=== PATIENT | female | born 1980 | race Caucasian/White ===

== ENCOUNTER 2016-09-30 22:49 | Emergency (ER) | payer OTHER ==
[2016-09-30] MEDS ORDERED: Azithromycin TAB* 250 MG PO ONE (23:19)
--- NOTE | 2016-09-30 23:33 | ED ---
Influenza-Like Illness - HPI Summary HPI Summary: Patient presents with 10 days of worsening sinus pressure and pain. She has a runny nose and cough that began to lessen yesterday, but today her facial pain became quite unbearable. She denies fever, chills, N/V/D. She is 20 weeks . Her cough is not productive, and when she blows her nose there is minimal mucus. She denies AARON, but again she has intense bilateral sinus pressure and pain. - History of Current Complaint Chief Complaint: EDFluSymptoms Time Seen by Provider: 09/30/16 23:04 Hx Obtained From: Patient, Family/Manager Ethics Onset/Duration: Gradual Onset Severity: Severe Associated Signs & Symptoms: Cough, Nasal Congestion - Allergy/Home Medications Allergies/Adverse Reactions: Allergies Allergy/AdvReac Type Severity Reaction Status Date / Time Penicillins Allergy Intermediate Rash Verified 06/18/16 12:53 PMH/Surg Hx/FS Hx/Imm Hx Previously Healthy: Yes - Surgical History Surgery Procedure, Year, and Place: tonsillectomy. NASAL FRACTURE REPAIR Infectious Disease History: No Infectious Disease History: Denies: Hx Clostridium Difficile, Hx Hepatitis, Hx Human Immunodeficiency Virus (HIV), Hx of Known/Suspected MRSA, Hx Shingles, Hx Tuberculosis, History Other Infectious Disease, Traveled Outside the [place] in Last 30 Days - Family History Known Family History: Positive: Hypertension - Social History Occupation: Employed Full-time Lives: With Family Alcohol Use: None Substance Use Type: Reports: None Smoking Status (MU): Never Smoked Tobacco Review of Systems Negative: Fever, Chills Positive: Nasal Discharge - with facial pain and pressure Positive: Cough. Negative: Shortness Of Breath Negative: Vomiting, Diarrhea, Nausea Negative: Edema Negative: Bruising Negative: Headache All Other Systems Reviewed And Are Negative: Yes Physical Exam Triage Information Reviewed: Yes Vital Signs On Initial Exam: Initial Vitals Temp Pulse Resp BP Pulse Ox 97.7 F 85 16 118/72 100 09/30/16 23:00 09/30/16 23:00 09/30/16 23:00 09/30/16 23:00 09/30/16 23:00 Vital Signs Reviewed: Yes Appearance: Positive: Well-Appearing, Well-Nourished, Pain Distress - patient appears uncomfortable Skin: Positive: Warm, Skin Color Reflects Adequate Perfusion, Dry, Soft Head/Face: Positive: Normal Head/Face Inspection, Other - tender to palpation over bilateral maxillary sinus L>R, non-tender over frontal Eyes: Positive: EOMI, ROBS[place], Conjunctiva Clear ENT: Positive: Hearing grossly normal, Pharynx normal, Nasal congestion, TMs normal. Negative: Tonsillar swelling, Tonsillar exudate Neck: Positive: Supple, Nontender, No Lymphadenopathy Respiratory/Lung Sounds: Positive: Clear to Auscultation, Breath Sounds Present Cardiovascular: Positive: RRR Neurological: Positive: Sensory/Motor Intact, Alert, Oriented to Person Place, Time Psychiatric: Positive: Affect/Mood Appropriate AVPU Assessment: Alert - [place] Coma Scale Coma Scale Total: 15 Diagnostics - Vital Signs Vital Signs Temp Pulse Resp BP Pulse Ox 09/30/16 23:17 87 98 09/30/16 23:16 98/62 09/30/16 23:00 97.7 F 85 16 118/72 100 - Laboratory Lab Statement: Any lab studies that have been ordered have been reviewed, and results considered in the medical decision making process. Flu Symptom Course/Dx - Diagnoses Differential Diagnosis/HQI/PQRI: Positive: Bronchitis, Influenza, Pneumonia, RSV , Upper Respiratory Infection Provider Diagnoses: Sinusitis, acute maxillary Discharge - Discharge Plan Condition: Stable Disposition: HOME Prescriptions: Azithromycin TAB* [Zithromax TAB (Z-ANISHA)*] 250 mg PO DAILY #4 tab Patient Education Materials: Sinusitis (ED) Referrals: Dena Samayoa [Primary Care Provider] - Additional Instructions: Please use the medication provided as prescribed. Call your PCP and CUT OFF SAW OPERATOR METAL tomorrow to discuss your treatment. Follow-up with your PCP if your symptoms do not begin to improve in the next 3-4 days. Return to the emergency department if your symptoms worsen.
[2016-09-30 23:57] VITALS: BP 116/74
== END 2016-09-30 23:55 | disposition home or self-care (01) ==
LOC: ED 22:49
DX: J01.00 Acute maxillary sinusitis, unspecified (principal); R05 Cough; R09.81 Nasal congestion
CPT/HCPCS: 99282; A9270-GY

== ENCOUNTER 2016-12-11 23:56 | Emergency (ER) | payer OTHER ==
[2016-12-12 01:05] VITALS: BP 115/69
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
== END 2016-12-12 01:03 | disposition home or self-care (01) ==
LOC: ED 23:56
DX: Z34.90 Encounter for supervision of normal pregnancy, unspecified, unspecified trimester (principal); R51 Headache; R11.2 Nausea with vomiting, unspecified; V49.9XXA Car occupant (driver) (passenger) injured in unspecified traffic accident, initial encounter; Y93.9 Activity, unspecified; Y92.9 Unspecified place or not applicable; Y99.9 Unspecified external cause status
CPT/HCPCS: 99282

== ENCOUNTER 2017-01-26 08:10 | Inpatient (IN) | payer OTHER ==
[2017-01-26] MEDS ORDERED: ceFAZolin 2 GM PREMIX(*) 2 GM/50 ML BAG IVPB ONE (09:25)
[2017-01-26] MEDS ORDERED: Dinoprostone* 10 MG VAG.SUPP VAGINAL ONE (09:25)
[2017-01-26 12:08] LABS: Hematocrit 30 % (35-47); Hemoglobin 9.8 g/dl (12.0-16.0); Mean Corpuscular HGB Conc 32 g/dl (31-36); Mean Corpuscular Hemoglobin 27 pg (27-31); Mean Corpuscular Volume 82 fL (80-97); Mean Platelet Volume 9 um3 (7.4-10.4); Red Blood Count 3.69 10^6/ul (4.0-5.4); Red Cell Distribution Width 16 % (10.5-15); White Blood Count 10.4 10^3/ul (3.5-10.8)
[2017-01-26 12:38] LABS: BUN/Creatinine Ratio 8.9 (8-20); Calcium 8.4 mg/dL (8.6-10.3); EGFR African American 159.4 (>60); EGFR Non-African American 123.9 (>60); Globulin 2.7 g/dL (2-4); Potassium 3.8 mmol/L (3.5-5.0); Total Bilirubin 0.4 mg/dL (0.2-1.0); Total Protein 5.7 g/dL (6.4-8.9); Uric Acid 4.5 mg/dL (2.3-6.6)
[2017-01-26] MEDS ORDERED: Sodium Citrate/Citric Acid* 15 ML UDC ONE (14:25)
[2017-01-26] MEDS ORDERED: ceFOXitin 2 GM IVPREMIX* 2 GM/50 ML BAG ONE (14:25)
[2017-01-26] MEDS ORDERED: ceFOXitin 2 GM IVPREMIX* 2 GM/50 ML BAG IVPB ONE (14:27)
[2017-01-26] MEDS ORDERED: Sodium Citrate/Citric Acid* 15 ML UDC PO ONE (14:29)
[2017-01-26] MEDS ORDERED: Morphine PF AMP (0.5MG/ML)* 5 MG/10 ML AMP ONE (14:36)
[2017-01-26] MEDS ORDERED: OXYTOCIN* 10 UNITS/ML 1 ML VIAL ONE (14:36)
[2017-01-26] MEDS ORDERED: Phenylephrine IV* 40 MCG/ML 10 ML SYRINGE ONE (14:36)
[2017-01-26] MEDS ORDERED: fentaNYL* 50 MCG/ML 2 ML VIAL (100 MCG VIAL) IV PRN (15:38)
[2017-01-26] MEDS ORDERED: Ondansetron INJ* 2 MG/ML VIAL IV PRN ×2 (15:38→15:39)
[2017-01-26] MEDS ORDERED: diPHENhydraMINE IV* 50 MG/ML 1 ml VIAL (BENADRYL) IV PRN (15:39)
[2017-01-26] MEDS ORDERED: Naloxone* 0.4 MG/ML 1 ML VIAL IV PRN (15:39)
[2017-01-26] MEDS ORDERED: oxyCODONE/Acetamin 5/325 MG* TAB PO PRN ×2 (15:39)
[2017-01-26] MEDS ORDERED: Glycerin ADULT SUPP PR PRN (16:34)
[2017-01-26] MEDS ORDERED: Witch Hazel PAD* JAR TOPICAL PRN (16:34)
[2017-01-26] MEDS ORDERED: Dibucaine 1% 28.35 GM TUBE PR PRN (16:34)
[2017-01-26] MEDS ORDERED: Acetaminophen TAB* 325 MG PO PRN (16:34)
[2017-01-26] MEDS ORDERED: Oxytocin in LR* 20 UNITS/1,000 ML BAG IVPB SCH (17:00)
[2017-01-26] MEDS ORDERED: ceFAZolin VIAL(*) 1 GM in NS 0.9% 50 ML* 50 ML IVPB SCH (18:00)
[2017-01-26] MEDS: Simethicone CHEW TAB* 80 MG PO SCH ×2 (20:17→22:13)
[2017-01-26] MEDS: Docusate CAP* 100 MG PO SCH (22:13)
[2017-01-26] MEDS: Ketorolac INJ* 30 MG/ML 1 ML VIAL IV PRN (22:14)
--- NOTE | 2017-01-27 04:29 | OP ---
AMENDED REPORT NOW INCLUDES DATE OF OPERATION - ESIGNED BEFORE ADJUSTMENT * DATE OF OPERATION: 01/26/17 - ROOM #[facility]-102 DATE OF : 84 SURGEON: Jayme Marie MD [address]HW[address] TRAFFIC CONTROL TECHNICIAN: Olga Fish CNM ANESTHESIOLOGIST: Dr. William Saucedo. ANESTHESIA: Spinal. PRE-OP DIAGNOSES: 37 weeks 1 day, mild preeclampsia, category 2 heart tracing, remote from delivery. POST-OP DIAGNOSES: 37 weeks 1 day, mild preeclampsia, category 2 heart tracing, remote from delivery. OPERATIVE PROCEDURE: Primary low flap transverse section via Pfannenstiel. Uterus closed in 2 layers. ESTIMATED BLOOD LOSS: 600 cc. SPECIMENS: None. FLUIDS: Per Anesthesia. DRAIN: Romero catheter, drained 400 cc of clear urine. FINDINGS: Viable female infant in the vertex presentation. Apgars were 8 and 9. Clear amniotic fluid. Baby weighed 7 pounds 2 ounces. Normal-appearing uterus. Normal-appearing ovaries and fallopian tubes bilaterally. COMPLICATIONS: None. COUNT: Sponge, lap and needle count correct x2. CONDITION: The patient was brought to recovery room awake and in stable condition. DESCRIPTION OF PROCEDURE: The patient was brought to the operating room. When spinal anesthesia was found to be adequate, a Romero catheter was placed under sterile conditions. The patient was prepped and draped in the usual sterile fashion in the dorsal supine position with a leftward tilt. Time-out was performed. The spinal was tested with the Allis clamps and found to be adequate. A Pfannenstiel skin incision was made approximately 2 cm above the symphysis pubis. This was carried down to the underlying layer of fascia. The fascia was incised in the midline and the fascial incision was extended laterally using the Kennedy scissors. The rectus muscle was dissected using sharp and blunt dissection. The peritoneum was identified, tented up and entered bluntly. The peritoneal incision was extended bluntly. The bladder blade was inserted. The vesicouterine peritoneum was identified and a bladder flap was created. The bladder blade was inserted. A low flap transverse incision was made on the uterus to the level of the membranes. The uterine incision was extended laterally and clear amniotic fluid was encountered. The infant was delivered atraumatically from the vertex presentation. The cord was milked. The cord was clamped and cut and the the was handed off to the waiting high school guidance counselor, Dr. Stout. Apgars were 8 and 9. The placenta was delivered. The uterus was exteriorized. The uterus was cleared of all clots and debris and the uterine incision was repaired using 0 Vicryl in a running locked fashion. A second layer of the same suture was used to imbricate and obtain excellent hemostasis. The ovaries and fallopian tubes were examined and found to be normal. The uterine incision was examined and found to be hemostatic. The abdomen and pelvis were copiously irrigated with warm normal saline. The uterus was returned to the pelvis. The gutters were cleared of all clots and debris and once again the uterine incision was examined and found to be hemostatic. The peritoneum was closed using 3-0 Vicryl. The subfascial layer was examined and found to be hemostatic. The fascia was closed using 0 Vicryl. The subcutaneous tissue was irrigated, any small bleeders were cauterized with the Bovie. Three interrupted sutures were used to close the subcu tissue, 3-0 Vicryl suture was used. The skin was closed with 4-0 Monocryl in a subcuticular fashion. Mastisol was applied. Steri-Strips were applied. A pressure dressing was applied and the patient was brought to recovery room awake and in stable condition. The Romero catheter was draining clear urine. [id number]/CPS #: [id number] MTDD
[2017-01-27] MEDS ORDERED: oxyCODONE/Acetamin 5/325 MG* TAB PO PRN (07:00)
[2017-01-27 07:59] LABS: Hematocrit 28 % (35-47); Hemoglobin 9.2 g/dl (12.0-16.0); Mean Corpuscular HGB Conc 33 g/dl (31-36); Mean Corpuscular Hemoglobin 26 pg (27-31); Mean Corpuscular Volume 79 fL (80-97); Mean Platelet Volume 9 um3 (7.4-10.4); Red Blood Count 3.51 10^6/ul (4.0-5.4); Red Cell Distribution Width 16 % (10.5-15); White Blood Count 12.4 10^3/ul (3.5-10.8)
[2017-01-27] MEDS: Docusate CAP* 100 MG PO SCH ×3 (09:39→21:20)
[2017-01-27] MEDS: Ferrous Gluconate TAB* 324 MG TAB PO SCH ×2 (09:39→21:23)
[2017-01-27] MEDS: Simethicone CHEW TAB* 80 MG PO SCH ×4 (09:39→21:23)
[2017-01-27] MEDS: Ketorolac INJ* 30 MG/ML 1 ML VIAL IV PRN (09:51)
[2017-01-27] MEDS ORDERED: Miconazole VAGINAL CREAM 2%* 45 GM VAGINAL SCH (19:30)
[2017-01-27] MEDS: Ibuprofen TAB* 600 MG PO PRN (19:39)
[2017-01-27] MEDS: oxyCODONE/Acetamin 5/325 MG* TAB PO PRN (23:48)
[2017-01-28] MEDS: oxyCODONE/Acetamin 5/325 MG* TAB PO PRN ×4 (03:48→20:54)
[2017-01-28] MEDS: Ibuprofen TAB* 600 MG PO PRN ×3 (03:48→16:37)
[2017-01-28] MEDS: Docusate CAP* 100 MG PO SCH ×3 (08:03→20:53)
[2017-01-28] MEDS: Ferrous Gluconate TAB* 324 MG TAB PO SCH ×2 (08:03→20:53)
[2017-01-28] MEDS: Simethicone CHEW TAB* 80 MG PO SCH ×4 (08:03→20:53)
[2017-01-28] MEDS: Miconazole TOPICAL CREAM 2%* 30 GM TOPICAL SCH (10:32)
--- NOTE | 2017-01-28 19:23 | PTEDU ---
Patient Name: SONYA DIAL SONYA DIAL selected video: Never Ever Shake a Baby to view on 01/28/2017 at 7:22:[address] [facility] [id number]
--- NOTE | 2017-01-28 19:32 | PTEDU ---
Patient Name: SONYA DIAL SONYA DIAL selected video: BBOB: Nurturing Your Gorgeous \T\Growing Baby by to josh rayo on 01/28/2017 at 7:31:45 PM from [id number]
--- NOTE | 2017-01-28 20:04 | PTEDU ---
Patient Name: SONYA DIAL SONYA DIAL selected video: BBOB: Bonding Through Massage to view on 01/28/2017 at 8:02:15 PM from [id number]
--- NOTE | 2017-01-28 21:36 | PTEDU ---
Patient Name: SONYA DIAL SONYA DIAL selected video: Never Ever Shake a Baby to view on 01/28/2017 at 9:35:07 PM from [facility] [place] [id number]
[2017-01-29] MEDS: oxyCODONE/Acetamin 5/325 MG* TAB PO PRN ×2 (03:55→08:06)
[2017-01-29] MEDS: Ibuprofen TAB* 600 MG PO PRN ×2 (03:56→10:01)
[2017-01-29] MEDS: Simethicone CHEW TAB* 80 MG PO SCH (08:06)
[2017-01-29] MEDS: Docusate CAP* 100 MG PO SCH (08:06)
[2017-01-29] MEDS: Ferrous Gluconate TAB* 324 MG TAB PO SCH (08:06)
[2017-01-29 08:10] VITALS: BP 109/62
[2017-01-29] MEDS: Miconazole TOPICAL CREAM 2%* 30 GM TOPICAL SCH (11:30)
== END 2017-01-29 11:35 | disposition home or self-care (01) | DRG 766 ==
LOC: MCHOBOUT 08:10 → MCHOB 09:21
PROVIDERS: ADMIT Obstetrics & Gynecology; ATTEND Obstetrics & Gynecology
PROC: 3E0P7GC Introduction of Other Therapeutic Substance into Female Reproductive, Via Natural or Artificial Opening (ICD-10-PCS; 2017-01-26)
PROC: 10D00Z1 Extraction of Products of Conception, Low, Open Approach (ICD-10-PCS; principal; 2017-01-26 14:53)
DX: O76 Abnormality in fetal heart rate and rhythm complicating labor and delivery (principal); D64.9 Anemia, unspecified; O14.04 Mild to moderate pre-eclampsia, complicating childbirth; O99.824 Streptococcus B carrier state complicating childbirth; O90.81 Anemia of the puerperium; Z3A.37 37 weeks gestation of pregnancy; Z37.0 Single live birth
CPT/HCPCS: 36415; 59200; 80053; 84550; 85025; 86850; 86900; 86901; A9270-GY; J0694; J1885; J2590

== ENCOUNTER 2017-03-14 16:36 | Emergency (ER) | payer OTHER ==
[2017-03-14 17:17] VITALS: BP 101/66
--- NOTE | 2017-03-14 18:35 | UC ---
Complaint Female HPI - HPI Summary HPI Summary: urinary burning, frequency, urgency, since this morning. Pt has hx of frequent UTIs. 6 weeks PP after c/s. Denies fever or back pain. Pt is breast-feeding. - History Of Current Complaint Chief Complaint: UCGU Stated Complaint: URINARY ISSUE Time Seen by Provider: 03/14/17 18:00 Hx Obtained From: Patient Hx Last Menstrual Period: post 6 weeks. ?: No Onset/Duration: Gradual Onset, Lasting Hours Timing: Constant Severity Initially: Mild Severity Currently: Mild Character: Burning Aggravating Factor(s): Urination Associated Signs And Symptoms: Negative: Fever, Back Pain, Vaginal Bleeding/ Discharge - Allergies/Home Medications Allergies/Adverse Reactions: Allergies Allergy/AdvReac Type Severity Reaction Status Date / Time Penicillins Allergy Intermediate Rash Verified 12/12/16 00:03 PMH/Surg Hx/FS Hx/Imm Hx Previously Healthy: Yes - Surgical History Surgical History: Yes Surgery Procedure, Year, and Place: tonsillectomy. NASAL FRACTURE REPAIR - Family History Known Family History: Positive: Hypertension - Social History Lives: With Family Alcohol Use: None Substance Use Type: None Smoking Status (MU): Never Smoked Tobacco - Immunization History Most Recent Influenza Vaccination: current per record Most Recent Tetanus Shot: up to date Most Recent Pneumonia Vaccination: none Review of Systems Constitutional: Negative Skin: Negative Eyes: Negative ENT: Negative Respiratory: Negative Cardiovascular: Negative Gastrointestinal: Negative Genitourinary: Dysuria, Frequency, Urgency Motor: Negative Neurovascular: Negative Musculoskeletal: Negative Neurological: Negative Psychological: Negative All Other Systems Reviewed And Are Negative: Yes Physical Exam Triage Information Reviewed: Yes Appearance: Well-Appearing, No Pain Distress, Well-Nourished Vital Signs: Initial Vital Signs Temp 98.1 F 03/14/17 17:13 Pulse 66 03/14/17 17:13 Resp 18 03/14/17 17:13 BP 101/66 03/14/17 17:13 Pulse Ox 100 03/14/17 17:13 Vital Signs Reviewed: Yes Eye Exam: Normal Eyes: Positive: Conjunctiva Clear ENT Exam: Normal ENT: Positive: Normal ENT inspection, Hearing grossly normal, Pharynx normal, TMs normal Neck exam: Normal Respiratory Exam: Normal Respiratory: Positive: Chest non-tender, Lungs clear, Normal breath sounds, No respiratory distress, No accessory muscle use Cardiovascular Exam: Normal Cardiovascular: Positive: RRR, No Murmur Abdomen Description: Negative: CVA Tenderness (R), CVA Tenderness (L) Musculoskeletal Exam: Normal Neurological Exam: Normal Neurological: Positive: Alert Psychological Exam: Normal Skin Exam: Normal Complaint Female Dx - Differential Dx/Diagnosis Provider Diagnoses: UTI Discharge - Discharge Plan Condition: Stable Disposition: HOME Prescriptions: Cephalexin CAP* [Keflex 500 CAP*] 500 mg PO TID #15 cap Patient Education Materials: Urinary Tract Infection in Women (ED) Referrals: Dena Samayoa [Primary Care Provider] - Additional Instructions: Please call or return if you do not have clear improvement within 2-3 days.
== END 2017-03-14 18:37 | disposition home or self-care (01) ==
LOC: UCEAST 16:36
DX: N39.0 Urinary tract infection, site not specified (principal); Z87.440 Personal history of urinary (tract) infections; Z32.02 Encounter for pregnancy test, result negative; Z88.0 Allergy status to penicillin
CPT/HCPCS: 81003; 84702; 87086; 99212; G0463

== ENCOUNTER 2017-09-15 23:30 | Emergency (ER) | payer OTHER ==
--- NOTE | 2017-09-16 00:32 | ED ---
Nemesio Smith Thomas, scribed for Susanne Irby MD on 09/16/17 at 0029 . Skin Complaint - HPI Summary HPI Summary: The patient is a 37 year old female presenting to the emergency department status post a needle stick to her right hand that occurred two hours ago. The patient was assisting in the euthanizing of a potentially rabid cat when a needle inserted into the cat was removed from the cat and then accidentally inserted into the patient. The patient did bleed out of the site of the stick. The cats brain will be checked for rabies on 09/17/17. - History of Current Complaint Chief Complaint: EDAnimalBite Time Seen by Provider: 09/16/17 00:06 Stated Complaint: NEEDLE STICK AT WORK Hx Obtained From: Patient Hx Last Menstrual Period: post 6 weeks. Onset/Duration: Started Hours Ago - 2, Still Present Skin Exposure Onset/Duration: Hours Ago - 2 Timing: Constant Current Severity: None Pain Intensity: 0 Pain Scale Used: 0-10 Numeric Skin Location: Hand - Right Aggravating Symptom(s): Nothing Alleviating Symptom(s): Nothing Associated Signs & Symptoms: Negative Related History: Other: - Needle stick from potentially rabid cat - Allergy/Home Medications Allergies/Adverse Reactions: Allergies Allergy/AdvReac Type Severity Reaction Status Date / Time Penicillins Allergy Intermediate Rash Verified 12/12/16 00:03 PMH/Surg Hx/FS Hx/Imm Hx Previously Healthy: Yes Endocrine/Hematology History: Denies: Hx Diabetes Cardiovascular History: Denies: Hx Hypertension - Surgical History Surgery Procedure, Year, and Place: tonsillectomy. NASAL FRACTURE REPAIR Infectious Disease History: No Infectious Disease History: Denies: Hx Clostridium Difficile, Hx Hepatitis, Hx Human Immunodeficiency Virus (HIV), Hx of Known/Suspected MRSA, Hx Shingles, Hx Tuberculosis, History Other Infectious Disease, Traveled Outside the [place] in Last 30 Days - Family History Known Family History: Positive: Hypertension - Social History Occupation: Employed Full-time Alcohol Use: Occasionally Substance Use Type: Reports: None Smoking Status (MU): Never Smoked Tobacco Review of Systems Negative: Fever Positive: Other - Needle stick All Other Systems Reviewed And Are Negative: Yes Physical Exam - Summary Physical Exam Summary: VITAL SIGNS: Reviewed. GENERAL: Patient is a well-developed and nourished female who is lying comfortable in the stretcher. Patient is not in any acute respiratory distress. HEAD AND FACE: No signs of trauma. No ecchymosis, hematomas or skull depressions. No sinus tenderness. EYES: PERRLA, EOMI x 2, No injected conjunctiva, no nystagmus. EARS: Hearing grossly intact. Ear canals and tympanic membranes are within normal limits. MOUTH: Oropharynx within normal limits. NECK: Supple, trachea is midline, no adenopathy, no JVD, no carotid bruit, no c- spine tenderness, neck with full ROM. CHEST: Symmetric, no tenderness at palpation LUNGS: Clear to auscultation bilaterally. No wheezing or crackles. CVS: Regular rate and rhythm, S1 and S2 present, no murmurs or gallops appreciated. ABDOMEN: Soft, non-tender. No signs of distention. No rebound no guarding, and no masses palpated. Bowel sounds are normal. EXTREMITIES: FROM in all major joints, no edema, no cyanosis or clubbing. NEURO: Alert and oriented x 3. No acute neurological deficits. Speech is normal and follows commands. SKIN: Dry and warm Triage Information Reviewed: Yes Vital Signs On Initial Exam: Initial Vitals Temp Pulse Resp BP Pulse Ox 97.6 F 73 20 128/68 97 09/15/17 23:32 09/15/17 23:32 09/15/17 23:32 09/15/17 23:32 09/15/17 23:32 Vital Signs Reviewed: Yes - [place] Coma Scale Coma Scale Total: 15 Diagnostics - Vital Signs Vital Signs Temp Pulse Resp BP Pulse Ox 09/15/17 23:32 97.6 F 73 20 128/68 97 - Laboratory Lab Statement: Any lab studies that have been ordered have been reviewed, and results considered in the medical decision making process. Course/Dx - Course Assessment/Plan: The patient is a 37 year old female presenting to the emergency department status post a needle stick to her right hand that occurred two hours ago. The patient was assisting in the euthanizing of a potentially rabid cat when a needle inserted into the cat was removed from the cat and then accidentally inserted into the patient. The patient did bleed out of the site of the stick. The cats brain will be checked for rabies on 09/17/17. I spoke with poison control, who says that there are not any specific precautions from a needlestick from a cat. They inform me that the patient should be evaluated in a few days for bacterial infection. The patient was advised to follow up with her primary care physician and with the health department on 09/17/17. - Diagnoses Provider Diagnoses: Needle stick from a cat Discharge - Discharge Plan Condition: Stable Disposition: HOME Patient Education Materials: Needle Stick Injuries (ED) Referrals: Dena Samayoa [Primary Care Provider] - 3 Days [facility], [[email or web address], APPLICATION, OTHER] - 09/17/17 Additional Instructions: You need to follow up with your primary care physician in three days. You also need to follow up with the [facility] Department on . The documentation as recorded by the Nemesio kimble Thomas accurately reflects the service I personally performed and the decisions made by me, Susanne Irby MD.
[2017-09-16 00:45] VITALS: BP 113/74
== END 2017-09-16 00:44 | disposition home or self-care (01) ==
LOC: ED 23:30
DX: S61.431A Puncture wound without foreign body of right hand, initial encounter (principal); W46.1XXA Contact with contaminated hypodermic needle, initial encounter; Y93.89 Activity, other specified; Y92.9 Unspecified place or not applicable